=== PATIENT | female | born 2000 | race Caucasian/White ===

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

== ENCOUNTER 2018-10-23 08:17 | Emergency (ER) | payer BC, OTHER ==
[2018-10-23 08:29] VITALS: TEMP 96.9; O2SAT 100
[2018-10-23 09:03] LABS: BASOPHILS % (AUTO) 1 % (0-3); EOSINOPHILS % (AUTO) 0 % (0-9); HEMATOCRIT 47 % (35-47); HEMOGLOBIN 15.3 gm/dl (12.0-15.5); LYMPHOCYTES % (AUTO) 19.3 % (10-50); MEAN CORPUSCULAR HEMOGLOBIN 31.5 pg (27.0-32.0); MEAN CORPUSCULAR HGB CONC 32.6 gm/dl (32.0-36.0); MEAN CORPUSCULAR VOLUME 97 fL (81-99); MONOCYTES % (AUTO) 5.5 % (0-12); NEUTROPHILS % (AUTO) 73.6 % (37-80)
[2018-10-23] MEDS ORDERED: SODIUM CHLORIDE 0.9% 1000ML 1,000 ML IV ONE (09:03)
[2018-10-23] MEDS ORDERED: ONDANSETRON HCL 4 MG/2 ML SOL IV ONE (09:03)
[2018-10-23] MEDS ORDERED: ONDANSETRON HCL 4 MG/2 ML SOL ONE (09:05)
[2018-10-23 09:13] LABS: APPEARANCE,URINE Clear; BILIRUBIN,URINE 2+ (NEGATIVE); COLOR,URINE Dark yellow; GLUCOSE, URINE (UA) NEGATIVE (NEGATIVE); KETONES,URINE TRACE (NEGATIVE); LEUKOCYTE ESTERASE ,URINE NEGATIVE (NEGATIVE); NITRATE,URINE NEGATIVE (NEGATIVE); OCCULT BLOOD,URINE NEGATIVE (NEG-TRACE); UROBILINOGEN,URINE 0.2 (0.2-1.0 EU)
[2018-10-23 09:15] LABS: INR 1.31 (0.87-1.13)
[2018-10-23 09:26] LABS: ALBUMIN 4.3 gm/dl (3.4-5.0); BILIRUBIN,TOTAL 0.5 mg/dl (0.2-1.0); CALCIUM 8.9 mg/dl (8.5-10.1); CARBON DIOXIDE 26.6 mEq/L (21-32); CREATININE 0.61 mg/dl (0.60-1.00); SALICYLATE 3.4 mg/dl (2.8-30.0); THYROID STIMULATING HORMONE 0.708 uIU/ml (0.358-3.740); TOTAL PROTEIN 7.4 gm/dl (6.4-8.2)
[2018-10-23 09:27] LABS: ALCOHOL 0.004 gm/dl (0.000-0.08)
[2018-10-23 09:40] LABS: ICTOTEST,URINE NEGATIVE (NEGATIVE)
[2018-10-23 09:41] LABS: AMPHETAMINES POSITIVE (NEGATIVE); BARBITUATES NEGATIVE (NEGATIVE); BENZODIAZEPINES NEGATIVE (NEGATIVE); CANNABINOL(THC) POSITIVE (NEGATIVE); COCAINE(COC) NEGATIVE (NEGATIVE); METHAMPHETAMINES POSITIVE (NEGATIVE); OPIATES(OPI) POSITIVE (NEGATIVE); OXYCODONE(OXY) POSITIVE (NEGATIVE); PROPOXYPHENE(PPX) NEGATIVE (NEGATIVE)
[2018-10-23 09:52] LABS: BACTERIA 1+ (< 1+); EPITHELIAL CELLS 0-2 (SQUAMOUS); RBC,URINE 0-2 (0-3AV/HPF)
[2018-10-23 09:53] LABS: CRYSTALS 1-4 CALCIUM OXALATE (0-3 AVE/HPF)
[2018-10-23 14:48] VITALS: BP 112/71; PULSE 59; RESP 16
== END 2018-10-23 14:01 | disposition short-term general hospital (02) ==
LOC: ED 08:17
DX: T39.1X2A Poisoning by 4-Aminophenol derivatives, intentional self-harm, initial encounter (principal); F15.90 Other stimulant use, unspecified, uncomplicated; F11.90 Opioid use, unspecified, uncomplicated; F12.90 Cannabis use, unspecified, uncomplicated; F19.90 Other psychoactive substance use, unspecified, uncomplicated
CPT/HCPCS: 36415; 80053; 80305; 80307; 81001; 84443; 84703; 85025; 85610; 96365; 96366; 96374; 99283; 99285; J2405